=== PATIENT | male | born 1955 | race Caucasian/White ===

== ENCOUNTER 2018-11-23 18:10 | Observation (INO) ==
[2018-11-23] MEDS ORDERED: FAMOTIDINE 20MG/5ML IV PUSH IV STA (18:35)
[2018-11-23] MEDS: SODIUM CHLORIDE 0.9% 1000ML 1,000 ML IV SCH (18:40)
--- NOTE | 2018-11-23 18:40 | XRay Report ---
XR chest 1V portable CLINICAL HISTORY: 62 years-old Male presenting with vomiting, ams, mid sternal chest pain and dizzine ss started today. TECHNIQUE: Portable upright AP view of the chest was obtained. COMPARISON: None. FINDINGS: Atherosclerosis of the aortic arch. Cardiac silhouette top normal in size. Color vascular prominence. Minimal basilar opacities. No pleural effusion or pneumothorax. Degenerative changes of the thoracic spine. Upper abdomen normal. IMPRESSION: 1. Mild volume overload. 2. Minimal bibasilar opacities likely atelectasis or vascular crowding. Electronically signed by: Raul Samuel M.D. 11/23/2018 6:38 PM
[2018-11-23 19:05] LABS: Basophils # (auto) 0.05 K/uL (0-0.2); Basophils % (auto) 0.4 %; Eosinophils % (auto) 0.8 %; Hemoglobin 15.2 g/dL (14.0-18.0); Immature Granulocytes # (auto) 0.09 K/uL (0.00-0.02); Immature Granulocytes % (auto) 0.7 %; Lymphocytes # (auto) 1.68 K/uL (1.2-3.4); Lymphocytes % (auto) 13.5 %; Mean Corpuscular Hgb Conc 35.3 g/dL (32-36); Mean Corpuscular Volume 89.8 fL (80-100); Mean Platelet Volume 9.7 fL (7.4-10.4); Monocytes % (auto) 5.6 %; Neutrophils # (auto) 9.83 K/uL (1.4-6.5); Platelet Count 222 K/uL (130-400); RDW Coefficient of Variation 13.1 % (11.5-14.5); RDW Standard Deviation 43.4 fL (36.4-46.3); Red Blood Count 4.79 M/uL (4.7-6.1); White Blood Count 12.45 K/uL (4.8-10.8)
[2018-11-23 19:21] LABS: Albumin Level 3.8 gm/dl (3.4-5.0); BUN Creatinine Ratio 16.3 (10-20); Calcium 9.3 mg/dl (8.5-10.1); Creatinine Clr Calc Pharmacy 76.2 ml/min; Est GFR (African American) 85.8; Magnesium 2.2 mg/dl (1.8-2.4); Potassium 4.4 mmol/L (3.5-5.1)
--- NOTE | 2018-11-23 19:23 | CT Scan Report ---
CT head/brain wo con CLINICAL HISTORY: 62 years-old Male presenting with dizziness, ams. TECHNIQUE: Multidetector CT imaging of the head was performed without the use of intravenous contrast . IV contrast: None. One or more dose lowering techniques were used consistent with the principles of ALARA (as low as reasonably achievable), including automatic exposure control, mA or kV adjustment t o individual patient size, and/or use of iterative reconstruction. COMPARISON: None. CT DOSE (mGy.cm): The estimated cumulative dose is 614.27 mGy.cm. FINDINGS: Commercial Loan Assistant topogram: Unremarkable. Ventricles and sulci normal in size. No hemorrhage. Brain parenchyma normal in appearance with preser julio bales-white differentiation. No acute territorial infarct. No mass effect or midline shift. No ext ra-axial fluid collection. Paranasal sinuses and mastoid air cells clear. Calvarium intact. IMPRESSION: 1. No acute intracranial abnormality. Electronically signed by: Raul Samuel M.D. 11/23/2018 7:22 PM
[2018-11-23 19:31] LABS: Albumin Globulin Ratio 1.1 (0.9-2); Bilirubin,Total 0.3 mg/dl (0.2-1); Globulin 3.5 gm/dl (2.5-4.0); Total Protein 7.3 gm/dl (6.4-8.2); Troponin I 0.019 ng/ml (0-0.045)
[2018-11-23] MEDS ORDERED: MECLIZINE HCL 25 MG TAB PO STA (20:28)
[2018-11-23] MEDS ORDERED: OPTIRAY 320 125ml IV PRN (21:28)
--- NOTE | 2018-11-23 21:34 | CT Scan Report ---
CT angio head w con CLINICAL HISTORY: 62 years-old Male presenting with severe dizziness, n/v. TECHNIQUE: Multidetector CT angiography of the head was performed after the administration of intrave nous contrast. 3-D volumetric and/or maximum intensity projection (MIP) images were subsequently eusebia nstructed for review. IV contrast: 120 mL of Optiray 320. One or more dose lowering techniques were u sed consistent with the principles of ALARA (as low as reasonably achievable), including automatic ex posure control, mA or kV adjustment to individual patient size, and/or use of iterative reconstructio n. COMPARISON: Head CT from the same day. CT DOSE (mGy.cm): The estimated cumulative dose is 557.35. FINDINGS: Deep Submergence Vehicle Operator topogram: Unremarkable. Anterior circulation: Atherosclerosis of the cavernous segments of the internal carotid arteries. Int racranial portions of the internal carotid arteries patent to the level of the termini. Anterior cere bral arteries patent. Middle cerebral arteries patent. Anterior communicating artery patent. Posterior circulation: Codominant vertebral arteries. Intradural portions of the vertebral arteries p atent. Posterior inferior cerebellar arteries patent. Basilar artery patent. Anterior inferior cerebe llar arteries poorly visualized. Superior cerebellar arteries patent. Posterior cerebral arteries pat ent. Posterior communicating arteries patent. Dural venous sinuses: Patent. Other: Allowing for the phase of contrast, brain parenchyma within normal limits. Calvarium intact. IMPRESSION: 1. No evidence of aneurysm, focal vessel occlusion, or significant stenosis of the intracranial maricarmen kamron. Electronically signed by: Raul Samuel M.D. 11/23/2018 9:33 PM
--- NOTE | 2018-11-23 21:37 | CT Scan Report ---
CT angio neck with con CLINICAL HISTORY: 62 years-old Male presenting with severe dizziness, n/v. TECHNIQUE: Multidetector CT angiography of the neck was performed after the administration of intrave nous contrast. 3-D volumetric and/or maximum intensity projection (MIP) images were subsequently eusebia nstructed for review. IV contrast: 120 mL of Optiray 320. One or more dose lowering techniques were u sed consistent with the principles of ALARA (as low as reasonably achievable), including automatic ex posure control, mA or kV adjustment to individual patient size, and/or use of iterative reconstructio n. Stenosis measurements were based on NASCET-like criteria (distal lumen diameter as the denominator for stenosis measurement). COMPARISON: None. CT DOSE (mGy.cm): The estimated cumulative dose is 557.35 mGy.cm. FINDINGS: Soft Sugar Cutter topogram: Unremarkable. Aortic arch: Aortic arch is not fully included within the [id number]. Innominate artery: Origin not included within the [id number]. Remainder patent. Right subclavian artery: Patent. Right common carotid artery: Patent. Right internal and external carotid arteries: Mild atherosclerotic plaque at the bifurcation without narrowing of the origins of the right internal or external carotid arteries. Left common carotid artery: Patent. Left internal and external carotid arteries: Mild atherosclerotic plaque and luminal irregularity at the carotid bifurcation without narrowing of the origins of the and left internal or external carotid arteries. Left subclavian artery: Patent. Vertebral arteries: Codominant vertebral arteries. Origins and courses of the bilateral vertebral art eries patent. Other: Limited intracranial evaluation within normal limits. Soft tissues of the neck normal allowing for the phase of contrast. Degenerative changes of the cervical spine. Paraseptal emphysematous alva ges and pleural parenchymal scarring at the lung apices. IMPRESSION: 1. No evidence of dissection, focal vessel occlusion, or significant stenosis of the cervical arteri es. Electronically signed by: Raul Samuel M.D. 11/23/2018 9:36 PM
--- NOTE | 2018-11-23 23:03 | Emergency Department Note ---
Entered by Allie Moore acting as a scribe for Denise Tenorio DO History of Present Illness General Chief complaint: Dizziness Stated complaint: DIZZINESS, VERTIGO SX Time Seen by Provider: 11/23/18 18:11 Source: patient Mode of arrival: EMS History of Present Illness Provider complaint: Dizziness Onset (ago): hour(s) less than 1 Location: head Pain Consistency: + other (episode) Quality: + other (dizziness) Associated symptoms: + chest pain (in center of chest), + nausea/vomiting and + other (diarrhea, diaphoretic); no headaches and no shortness of breath The patient is a 62 year old male who presents to the ED with complaints of an episode of dizziness that started less than an hour ago. Per EMS, the patient was nauseas, vomiting, had diarrhea and was diaphoretic upon arrival. The patient states that he is dizzy and has vomited 10-15 times in the past hour. The patient notes that he did not hit his head at any point during this episode. The patient states that he currently has chest pain in the center of his chest that began upon arrival to the ED. no chest pain prior to dizziness. No prior history of dizziness. No recent change in medications. Patient does not take blood thinners. The patient denies headache and shortness of breath. No recent fevers, no recent illness. No paresthesias. No light sensitivity, no tinnitus. Home Medications Home Medications Medication Instructions Recorded Confirmed Type meclizine 25 mg PO TID PRN #20 tab 11/23/18 Rx ondansetron 4 mg PO Q8H PRN #14 tab 11/23/18 Rx pravastatin 40 mg PO DAILY 11/24/18 11/24/18 History Allergies Allergy/AdvReac Type Severity Reaction Status Date / Time No Known Allergies Allergy Mild Unverified 05/12/06 20:38 Past Med/Surg History Medical History Tick bite (Resolved) Social History Preferred Language: Kinyarwanda Communication Ability: Effective Briquette Maker Required: No Beliefs That Will Affect Care: None marital status: Current Living Situation: Spouse Feels Safe at Home: Yes Safety Concerns: Feels Safe At This Time Smoking Status: Current every day smoker Tobacco Type: cigarettes Cigarettes Per Day: 10 Hx Alcohol Use: Yes Alcohol type: beer Hx Substance Use: No Review of Systems See HPI for pertinent positives & negatives. and A total of 10 systems reviewed and were otherwise negative ROS and HPI is limited secondary to prehospital medication and current condition. Physical Exam Vital Signs Vital Signs - 24 hr 11/24/18 01:00 11/24/18 01:30 11/24/18 01:31 Pulse Rate 59 L 58 L 61 Pulse Rate from SpO2 Sensor 60 58 L 62 Respiratory Rate 10 L 13 16 Blood Pressure 167/86 H 149/81 H Blood Pressure Mean 113 103 Pulse Oximetry 95 96 96 11/24/18 02:00 Pulse Rate 57 L Pulse Rate from SpO2 Sensor Respiratory Rate 17 Blood Pressure 170/85 H Blood Pressure Mean 113 Pulse Oximetry GENERAL: somnolent, slightly diaphoretic, well nourished, no distress, non- toxic, slightly pale. EYE EXAM: normal conjunctiva, PERRL and EOM's grossly intact, difficulty opening eyes to assess for nystagmus OROPHARYNX: no exudate, no erythema, lips, buccal mucosa, and tongue normal and mucous membranes are moist NECK: supple, no nuchal rigidity, no adenopathy, non-tender LUNGS: Clear to auscultation. Normal chest wall mechanics, no w/r/r HEART: no murmurs, S1 normal and S2 normal ABDOMEN: abdomen soft, non-tender, normo-active bowel sounds, no masses, no rebound or guarding. BACK: Back is symmetrical on inspection and there is no deformity, no midline tenderness, no CVA tenderness. SKIN: no rashes and no bruising, slightly diaphoretic, slightly pale. UPPER EXTREMITIES: upper extremities are grossly normal. FROM, nml pulses b/l. LOWER EXTREMITIES: No pitting edema. FROM, nml pulses b/l. NEURO EXAM: Normal sensorium, cranial nerves II-XII grossly intact, normal speech, no gross weakness of arms, no gross weakness of legs. No drift. Finger to nose intact. Gross sensation intact. Patient answers questions slowly but appropriately. Opens eyes to voice. Is oriented. Will follow commands. Unable to perform additional neurological testing due to somnolence from medication. Course 1814: Past medical records reviewed. The patient was evaluated in room A12B. A complete history and physical exam was performed. 1920: I discussed the patient's test results with them. He is resting comfortably. 1955: I reevaluated the patient at this time. The patient wakes up more easily. Horizontal nystagmus is now evident. The patient notes that dizziness returns upon turning his head to the sides. 2155: I reevaluated the patient at this time and he is feeling better. Will try po challenge. 3: I reevaluated the patient and he is sitting upright. The patient states that he is feeling wobbly but better. The patient no longer has nystagmus and he is tolerating sips PO. 0045: After repeat ambulatory attempt, pt became dizzy and nauseated again. Pt given additional meds. 0132: I discussed the patients [facility] They will evaluate the patient for further management. Consultations Consultation #1: I discussed the patients case with Dr. Smeaj Pacheco. They will evaluate the patient for further management. Time: 01:32 Administered Medications Meclizine HCl (Antivert) 12.5 mg PO TID PRN PRN Reason: Dizziness or Vertigo Stop: 12/24/18 02:51 Last Admin: 11/24/18 16:42 Dose: 12.5 mg Documented by: [id number] Pravastatin Sodium (Pravachol) 40 mg PO DAILY MACY Stop: 12/24/18 08:59 Last Admin: 11/24/18 08:20 Dose: 40 mg Documented by: [id number] Discontinued Medications Diazepam (Valium) 2.5 mg IV NOW STA Stop: 11/24/18 00:02 Last Admin: 11/24/18 00:23 Dose: 2.5 mg Documented by: [id number] Famotidine (Pepcid 20mg Iv Push) 20 mg IV ONE STA Stop: 11/23/18 18:36 Last Admin: 11/23/18 18:41 Dose: 20 mg Documented by: [id number] Gadobutrol (Gadavist 65ml) 9 ml IV ONCE PRN PRN Reason: Interaction Checking Stop: 11/28/18 11:01 Last Admin: 11/24/18 11:03 Dose: 9 ml Documented by: [id number] Sodium Chloride (Nss 1000ml) 1,000 mls @ 125 mls/hr IV .Q8H MACY Stop: 12/23/18 18:29 Last Infusion: 11/24/18 14:00 Dose: 0 mls/hr Documented by: [id number] Admin: 11/23/18 18:40 Dose: 125 mls/hr Documented by: [id number] Sodium Chloride (Nss 1000ml) 1,000 mls @ 80 mls/hr IV .[id number] MACY Stop: 12/24/18 02:51 Last Infusion: 11/24/18 15:57 Dose: 0 mls/hr Documented by: [id number] Admin: 11/24/18 03:27 Dose: 80 mls/hr Documented by: [id number] Ioversol (Optiray 320 125ml) 120 ml IV ONCE PRN PRN Reason: Interaction Checking Stop: 11/27/18 21:27 Last Admin: 11/23/18 21:28 Dose: 120 ml Documented by: [id number] Meclizine HCl (Antivert) 25 mg PO NOW STA Stop: 11/23/18 20:29 Last Admin: 11/23/18 20:56 Dose: 25 mg Documented by: [id number] Meclizine HCl (Antivert 25mg Home Pack) 1 homepack PO UD ONE Stop: 11/23/18 23:56 Last Admin: 11/24/18 01:09 Dose: Not Given Documented by: [id number] Ondansetron HCl (Zofran Odt 4mg Home Pack) 1 homepack PO NOW ONE Stop: 11/23/18 23:56 Last Admin: 11/24/18 01:09 Dose: Not Given Documented by: [id number] Ondansetron HCl (Zofran) 4 mg IV NOW STA Stop: 11/24/18 00:03 Last Admin: 11/24/18 00:23 Dose: 4 mg Documented by: [id number] Medical Decision Making Differential Diagnosis Differential diagnosis: Etiologies such as benign positional vertigo, labrynthitis, dehydration, hypovolemia, anemia, tumor, infection, hypoglycemia, electrolyte abnormalities, cardiac sources, toxicological sources, central neurologic process, as well as others were entertained. Medical Records Attestation: I reviewed the patient's medical records. Home Medications Current Medication List: was personally reviewed by me Laboratory Data Attestation: I reviewed the patient's lab results. Result diagrams: 11/24/18 06:58 11/24/18 06:58 Lab Results 06/11/23/18 11/23/18 Range/Units 18:56 18:56 21:34 WBC 12.45 H (4.8-10.8) K/uL RBC 4.79 (4.7-6.1) M/uL Hgb 15.2 (14.0-18.0) g/dL Hct 43.0 (42-52) % MCV 89.8 (80-100) fL MCH 31.7 (25-34) pg MCHC 35.3 (32-36) g/dL RDW Std Deviation 43.4 (36.4-46.3) fL RDW Coeff of Roverto 13.1 (11.5-14.5) % Plt Count 222 (130-400) K/uL MPV 9.7 (7.4-10.4) fL Immature Gran % (Auto) 0.7 % Neut % (Auto) 79.0 % Lymph % (Auto) 13.5 % [place] % (Auto) 5.6 % Eos % (Auto) 0.8 % Baso % (Auto) 0.4 % Immature Gran # (Auto) 0.09 H (0.00-0.02) K/uL Neut # (Auto) 9.83 H (1.4-6.5) K/uL Lymph # (Auto) 1.68 (1.2-3.4) K/uL [place] # (Auto) 0.70 H (0.11-0.59) K/uL Eos # (Auto) 0.10 (0-0.5) K/uL Baso # (Auto) 0.05 (0-0.2) K/uL Sodium 141 (136-145) mmol/L Potassium 4.4 (3.5-5.1) mmol/L Chloride 105 (98-107) mmol/L Carbon Dioxide 26 (21-32) mmol/L Anion Gap 11.0 (3-11) BUN 17 (7-18) mg/dl Creatinine 1.07 (0.6-1.4) mg/dl Est Cr Clr Drug Dosing 76.2 ml/min Est GFR ( Amer) 85.8 Est GFR (Non-Af Amer) 74.0 BUN/Creatinine Ratio 16.3 (10-20) Glucose 164 H (70-99) mg/dl Calcium 9.3 (8.5-10.1) mg/dl Magnesium 2.2 (1.8-2.4) mg/dl Total Bilirubin 0.3 (0.2-1) mg/dl AST 16 (15-37) U/L ALT 28 (12-78) U/L Alkaline Phosphatase 108 (45-117) U/L Troponin I 0.019 0.016 (0-0.045) ng/ml Total Protein 7.3 (6.4-8.2) gm/dl Albumin 3.8 (3.4-5.0) gm/dl Globulin 3.5 (2.5-4.0) gm/dl Albumin/Globulin Ratio 1.1 (0.9-2) Lipase 71 L (73-393) U/L TSH 1.700 (0.300-4.500) uIu/ml Imaging Data Radiologist's Impression: Radiology results as stated below per my review and the radiologist's interpretation: XR chest 1V portable CLINICAL HISTORY: 62 years-old Male presenting with vomiting, ams, mid sternal chest pain and dizziness started today. TECHNIQUE: Portable upright AP view of the chest was obtained. COMPARISON: None. FINDINGS: Atherosclerosis of the aortic arch. Cardiac silhouette top normal in size. Color vascular prominence. Minimal basilar opacities. No pleural effusion or pneumothorax. Degenerative changes of the thoracic spine. Upper abdomen normal. IMPRESSION: 1. Mild volume overload. 2. Minimal bibasilar opacities likely atelectasis or vascular crowding. Electronically signed by: Raul Samuel M.D. 11/23/2018 6:[address] head/brain wo con CLINICAL HISTORY: 62 years-old Male presenting with dizziness, ams. TECHNIQUE: Multidetector CT imaging of the head was performed without the use of intravenous contrast. IV contrast: None. One or more dose lowering techniques were used consistent with the principles of ALARA (as low as reasonably achievable), including automatic exposure control, mA or kV adjustment to individual patient size, and/or use of iterative reconstruction. COMPARISON: None. CT DOSE (mGy.cm): The estimated cumulative dose is 614.27 mGy.cm. FINDINGS: Design Draftsman topogram: Unremarkable. Ventricles and sulci normal in size. No hemorrhage. Brain parenchyma normal in appearance with preserved bales-white differentiation. No acute territorial infarct. No mass effect or midline shift. No extra-axial fluid collection. Paranasal sinuses and mastoid air cells clear. Calvarium intact. IMPRESSION: 1. No acute intracranial abnormality. Electronically signed by: Raul Samuel M.D. 11/23/2018 7:[address] angio head w con CLINICAL HISTORY: 62 years-old Male presenting with severe dizziness, n/v. TECHNIQUE: Multidetector CT angiography of the head was performed after the administration of intravenous contrast. 3-D volumetric and/or maximum intensity projection (MIP) images were subsequently reconstructed for review. IV contrast: 120 mL of Optiray 320. One or more dose lowering techniques were used consistent with the principles of ALARA (as low as reasonably achievable), including automatic exposure control, mA or kV adjustment to individual patient size, and/or use of iterative reconstruction. COMPARISON: Head CT from the same day. CT DOSE (mGy.cm): The estimated cumulative dose is 557.35. FINDINGS: Design Draftsman topogram: Unremarkable. Anterior circulation: Atherosclerosis of the cavernous segments of the internal carotid arteries. Intracranial portions of the internal carotid arteries patent to the level of the termini. Anterior cerebral arteries patent. Middle cerebral arteries patent. Anterior communicating artery patent. Posterior circulation: Codominant vertebral arteries. Intradural portions of the vertebral arteries patent. Posterior inferior cerebellar arteries patent. Basilar artery patent. Anterior inferior cerebellar arteries poorly visualized. Superior cerebellar arteries patent. Posterior cerebral arteries patent. Posterior communicating arteries patent. Dural venous sinuses: Patent. Other: Allowing for the phase of contrast, brain parenchyma within normal limits. Calvarium intact. IMPRESSION: 1. No evidence of aneurysm, focal vessel occlusion, or significant stenosis of the intracranial arteries. Electronically signed by: Raul Samuel M.D. 11/23/2018 9:[address] angio neck with con CLINICAL HISTORY: 62 years-old Male presenting with severe dizziness, n/v. TECHNIQUE: Multidetector CT angiography of the neck was performed after the administration of intravenous contrast. 3-D volumetric and/or maximum intensity projection (MIP) images were subsequently reconstructed for review. IV contrast: 120 mL of Optiray 320. One or more dose lowering techniques were used consistent with the principles of ALARA (as low as reasonably achievable), including automatic exposure control, mA or kV adjustment to individual patient size, and/or use of iterative reconstruction. Stenosis measurements were based on NASCET-like criteria (distal lumen diameter as the denominator for stenosis niecy surement). COMPARISON: None. CT DOSE (mGy.cm): The estimated cumulative dose is 557.35 mGy.cm. FINDINGS: Design Draftsman topogram: Unremarkable. Aortic arch: Aortic arch is not fully included within the [id number]. Innominate artery: Origin not included within the [id number]. Remainder patent. Right subclavian artery: Patent. Right common carotid artery: Patent. Right internal and external carotid arteries: Mild atherosclerotic plaque at the bifurcation without narrowing of the origins of the right internal or external carotid arteries. Left common carotid artery: Patent. Left internal and external carotid arteries: Mild atherosclerotic plaque and luminal irregularity at the carotid bifurcation without narrowing of the origins of the and left internal or external carotid arteries. Left subclavian artery: Patent. Vertebral arteries: Codominant vertebral arteries. Origins and courses of the bilateral vertebral arteries patent. Other: Limited intracranial evaluation within normal limits. Soft tissues of the neck normal allowing for the phase of contrast. Degenerative changes of the cervical spine. Paraseptal emphysematous changes and pleural parenchymal scarring at the lung apices. IMPRESSION: 1. No evidence of dissection, focal vessel occlusion, or significant stenosis of the cervical arteries. Electronically signed by: Raul Samuel M.D. 11/23/2018 9:36 PM ECG Data Attestation: I personally reviewed and interpreted this ECG as follows: Indication: other (Dizziness) Rate (beats per minute): 59 Rhythm: sinus bradycardia Findings: + other (normal axis, normal intervals); no PAC, no PVC, no ST depression, no ST elevation, no acute ischemic change and no ectopy Blood Pressure Blood Pressure Findings: Elevated blood pressure Blood Pressure Disposition: further management by hospitalist BIRDIE Beckett Patient here markedly ill-appearing on arrival, story most suggestive of benign paroxysmal positional vertigo. No recent trauma or infection to suggest additional etiology. Initially could not assess for nystagmus or perform hints exam due to severity of symptoms and patient's somnolence due to IV Versed given by EMS prehospital. Patient's initial head CT reassuring, given recurrence of severe symptoms while here and recurrent vomiting, patient sent for angiography to rule out other pathology. This was also reassuring. After additional medications, patient's symptoms did begin to improve. Patient was able to to lerate p.o. and eventually sit upright despite some residual symptoms. Initially patient felt improved enough to try and ambulatory trial. Patient failed this was given additional medications. Patient then monitored again, slowly began to report feeling improved, however with repeat ambulatory trial, his symptoms again became severe to the point of nearly falling and vomiting again. I discussed with patient likely diagnosis, lack of other findings for other pathology including other neuro, vascular, or cardiac etiology. I suspect nausea and vomiting is secondary to dizziness and not from additional occult GI pathology. Case discussed with hospitalist for additional evaluation and manag ement. Impression & Plan Dizziness, Benign paroxysmal positional vertigo, Vomiting Discharge Plan Visit Data *Final* Discharge Date/Time: 11/24/18 02:29 Chief Complaint: Dizziness Stated Complaint: DIZZINESS, VERTIGO SX ED Provider: Denise Tenorio Discharge Problem: Dizziness, Benign paroxysmal positional vertigo, Vomiting Patient Disposition: Admitted As Inpatient Condition: Good Discharge Instructions Interventions: ED Discharge Assessment Last Done: 11/24/18 02:29 Discharge Problem: Benign paroxysmal positional vertigo Qualifiers: Laterality: unspecified laterality Qualified Code(s): H81.10 - Benign paroxysmal vertigo, unspecified ear Vomiting Qualifiers: Vomiting type: unspecified Vomiting Intractability: non-intractable Nausea presence: with nausea Qualified Code(s): R11.2 - Nausea with vomiting, unspecified The scribe's documentation has been prepared under my direction and personally reviewed by me in its entirety. I confirm that the note above accurately reflects all work, treatment, procedures, and medical decision making performed by me.
[2018-11-23] MEDS ORDERED: MECLIZINE HCL 25MG HOME PACK PO ONE (23:55)
[2018-11-23] MEDS ORDERED: ONDANSETRON HOME PACK 4MG OD TAB PO ONE (23:55)
[2018-11-24] MEDS ORDERED: DIAZEPAM 5 MG/ML INJ 10ML VIAL IV STA (00:01)
[2018-11-24] MEDS ORDERED: ONDANSETRON INJ 2 MG/ML 2 ML VIAL IV STA (00:02)
[2018-11-24] MEDS ORDERED: MECLIZINE 12.5 MG TAB PO PRN (02:52)
[2018-11-24] MEDS ORDERED: NITROGLYCERIN SL 0.4 MG/TAB TAB SL PRN (02:52)
[2018-11-24] MEDS ORDERED: SODIUM CHLORIDE 0.9% 1000ML 1,000 ML IV SCH (02:52)
[2018-11-24] MEDS ORDERED: ACETAMINOPHEN 325 MG TAB PO PRN (02:52)
[2018-11-24] MEDS ORDERED: ONDANSETRON INJ 2 MG/ML 2 ML VIAL IV PRN (02:52)
[2018-11-24 07:08] LABS: Basophils # (auto) 0.04 K/uL (0-0.2); Basophils % (auto) 0.4 %; Eosinophils # (auto) 0.08 K/uL (0-0.5); Eosinophils % (auto) 0.8 %; Hematocrit (blood only) 39.3 % (42-52); Hemoglobin 13.7 g/dL (14.0-18.0); Immature Granulocytes # (auto) 0.04 K/uL (0.00-0.02); Immature Granulocytes % (auto) 0.4 %; Lymphocytes # (auto) 2.11 K/uL (1.2-3.4); Lymphocytes % (auto) 21.3 %; Mean Corpuscular Hgb Conc 34.9 g/dL (32-36); Mean Corpuscular Volume 90.3 fL (80-100); Mean Platelet Volume 9.3 fL (7.4-10.4); Monocytes # (auto) 0.74 K/uL (0.11-0.59); Monocytes % (auto) 7.5 %; Neutrophils # (auto) 6.91 K/uL (1.4-6.5); Neutrophils % (auto) 69.6 %; Platelet Count 205 K/uL (130-400); RDW Coefficient of Variation 13.1 % (11.5-14.5); RDW Standard Deviation 43.9 fL (36.4-46.3); Red Blood Count 4.35 M/uL (4.7-6.1); White Blood Count 9.92 K/uL (4.8-10.8)
[2018-11-24 07:24] LABS: Calcium 9.1 mg/dl (8.5-10.1); Creatinine Clr Calc Pharmacy 103.7 ml/min; Est GFR (African American) 108.2; Est GFR (Non-African American) 93.4; Magnesium 2.2 mg/dl (1.8-2.4); Potassium 4.6 mmol/L (3.5-5.1)
[2018-11-24] MEDS: PRAVASTATIN SOD 40 MG TAB PO SCH (08:20)
--- NOTE | 2018-11-24 09:02 | History and Physical Report ---
DATE OF ADMISSION: 11/24/2018 CHIEF COMPLAINT: Severe dizziness. HISTORY OF PRESENT ILLNESS: This 62-year-old male with past medical history significant for hyperlipidemia, prediabetes, comes with severe dizziness. The patient says that he mowed his grass and then he came home and his asked to get him something and he went to pick the thing up, he suddenly felt severely dizzy, felt the whole room spinning and he called the EMS. When the EMS came in, he was having nausea, vomiting, diarrhea and diaphoretic and he had several episodes of vomiting. He was thinking that he might have some food poison that he said he ate some leftover pizza. The EMS gave some medication and then he did not know what happened, he just woke up in the ER. In the ER, he was given meclizine, famotidine and was having significant dizziness and so he was also given Valium. CT of the head was done, which was unremarkable. Since he was having ongoing symptoms and there was some horizontal nystagmus, CTA of the head and neck was done, which was unremarkable. ER tried to discharge the patient but whenever he is getting up from the bed, he is still feeling dizzy, room spinning, imbalance and nauseous, so we are called for admission. The patient is currently resting comfortably and hemodynamically stable, but he says when he turns his head, he sometimes is feeling room spinning and he says he just now got up to go for bathroom and he was feeling again dizziness and imbalance. It never happened before. Denies any upper respiratory infections. No fever, no chills, no headache. Currently has some blurred vision, no earache, no sore throat. Otherwise, no difficulty swallowing. Appetite is okay otherwise. Denies any chest pain currently, no shortness of breath, no abdominal pain. Normal bladder movements. No hematuria, no burning micturition. No swelling in the legs. No rash. ALLERGIES: No known drug allergies. PAST MEDICAL HISTORY: As mentioned above. PAST SURGICAL HISTORY: Colonoscopy, wisdom tooth removal, removal of right testis secondary to torsion. MEDICATIONS: Pravastatin 40 mg p.o. daily. FAMILY HISTORY: Significant for father has diabetes. Mother has diabetes and Alzheimer dementia. Brother has high cholesterol. SOCIAL HISTORY: and lives with his . Former smoker, quit smoking, smoked 0.25 pack a day for 32 years. Alcohol rarely. REVIEW OF SYMPTOMS: As per HPI. Rest of review of symptoms negative. PHYSICAL EXAMINATION: GENERAL: The patient is of moderate build, not in acute distress. VITAL SIGNS: Temperature afebrile, pulse 59, respiratory rate 18, blood pressure 161/86, oxygen 95% on room air. HEENT: No pallor, no icterus. Pupils equal, round, reactive to light. Possible horizontal nystagmus mildly present. NECK: No neck masses. Supple. CARDIOVASCULAR: S1, S2 heard, regular rate and rhythm, no murmur, no gallop. RESPIRATORY SYSTEM: Normal AP diameter. No accessory muscle use. No wheezing, no crackles. ABDOMEN: Soft, bowel sounds present. Nontender. No distention. CENTRAL NERVOUS SYSTEM: Cranial nerves II-XII grossly intact. Coordination of movements normal. Bgyboz-og-kwyu test normal. No pronator drift. EXTREMITIES: No edema, no erythema. LABORATORY DATA: WBC 12.4, hemoglobin 15.2, hematocrit 43, platelets 222. Sodium 141, potassium 4.4, chloride 105, bicarbonate 26, BUN 17, creatinine 1.07, serum glucose 164, calcium 9.3, magnesium 2.2, total bilirubin 0.3, AST 16, ALT 28, alkaline phosphatase 108. Troponin I 0.016. Lipase 71. TSH 1.7. Chest x-ray; mild volume overload, minimal bibasilar atelectasis. CT of the head; no acute intracranial abnormality seen. CTA of the head and neck; no acute findings. EKG; sinus bradycardia, rate of 59, nonspecific ST abnormalities seen. ASSESSMENT AND PLAN: This is a 62-year-old male who presents with severe dizziness. 1. Severe dizziness, possible benign positional vertigo: Initial workup with CT of the head and CTA of the head and neck is unremarkable. We will also do a brain MRI to rule out any central causes. Check orthostatics. Gentle fluids and meclizine p.r.n. and consult Neurology for further recommendation. PT/OT. Observe on Medical/Surgical. 2. History of hyperlipidemia: Continue statin. 3. Deep venous thrombosis prophylaxis: Sequential compression devices. 4. Disposition: Observation in Medical/Surgical Telemetry. Level 1 full code. MTDD
[2018-11-24 10:11] LABS: Appearance Urine Clear (Clear); Bilirubin Urine Negative (Negative); Blood Urine Negative (Negative); Color Urine Yellow; Glucose Urine UA Negative (Negative); Ketones Urine Negative (Negative); Leukocyte Esterase Urine Negative (Negative); Nitrite Urine Negative (Negative); Protein Urine Negative (Negative); Specific Gravity Urine 1.011 (1.000-1.030); Urobilinogen Urine Negative (Negative)
[2018-11-24] MEDS ORDERED: GADOBUTROL 65ML VIAL IV PRN (11:02)
--- NOTE | 2018-11-24 11:25 | Magnetic Resonance Report ---
MRI OF THE BRAIN WITHOUT AND WITH IV CONTRAST CLINICAL HISTORY: Severe dizziness. COMPARISON STUDY: Head CT and CTA of the head November 23, 2018. TECHNIQUE: Utilizing a 1.5 Ange magnet and dedicated coil, multiplanar, multiecho imaging of the br ain was performed pre and postcontrast administration. IV administration of 9 mL of Gadavist contras t was uneventful. FINDINGS: There are no foci of restricted diffusion to suggest acute infarct. No acute intracranial h emorrhage, midline shift or mass effect is present. Brain volume is normal. Ventricular system is nor mal. The basilar cisterns are patent. No intracranial mass or pathologic enhancement. Mild white latisha er T2 hyperintense foci suggest small vessel disease. There is no fluid within the mastoid air cells. No cerebellopontine angle mass is identified. Orbits are unremarkable. IMPRESSION: 1. No acute intracranial findings. 2. No intracranial mass or pathologic enhancement. Electronically signed by: Toney Rizvi M.D. 11/24/2018 11:24 AM
--- NOTE | 2018-11-24 12:48 | Hospitalist Progress Note ---
Date of Service November 24, 2018 Assessment & Plan (1) Dizziness: This is a 62-year-old male who presents with severe dizziness which was also associated with vomiting Dizziness and Vomiting possibly benign positional vertigo -Head CTA: No evidence of aneurysm, focal vessel occlusion, or significant stenosis of the intracranial arteries -Neck CTA: No evidence of dissection, focal vessel occlusion, or significant stenosis of the cervical arteries -patient received IV fluids and antiemetics and meclizine -no acute telemetry events, heart rate and rhythm has been sinus and normal -echocardiogram: normal ejection fraction -Brain MRI 11/24/18: there are no foci of restricted diffusion to suggest acute infarct. No acute intracranial hemorrhage, midline shift or mass effect is present. Brain volume is normal. Ventricular system is normal. The basilar cisterns are patent. No intracranial mass or pathologic enhancement. Mild white matter T2 hyperintense foci suggest small vessel disease. There is no fluid within the mastoid air cells. No cerebellopontine angle mass is identified. Orbits are unremarkable. -So far the initial dizziness or vertigo for which he initially presented for appears to be resolved. Patient denies dizziness currently. He was able to move his head rapidly from side to side without acute issues. no headache. no vomiting today. no chest pain. no shortness of breath. we discussed currently imaging scan results which have been generally negative. patient is encouraged to walk as tolerated and will monitor blood pressure off IV fluids -likely patient may be discharged by tomorrow if symptoms continue to be improved; -will appreciate any additional neurology service recommendations suspected hypertension -blood pressure systolic in the 150s to 160s while in the hospital -will monitor blood pressures off IV fluids -will consider anti-hypertensives depending on monitoring History of hyperlipidemia -Continue statin. Deep venous thrombosis prophylaxis: Sequential compression devices, encourage ambulation as tolerated Subjective Patient seen and examined today. So far the initial dizziness or vertigo for which he initially presented for appears to be resolved. Patient denies dizziness currently. He was able to move his head rapidly from side to side without acute issues. no headache. no vomiting today. no chest pain. no shortness of breath. we discussed currently imaging scan results which have been generally negative. patient is encouraged to walk as tolerated and will monitor blood pressure off IV fluids Physical Exam Constitutional: WD/WN, vitals as above Eyes: PERRL, conjunctivae normal, anicteric sclerae EOM intact bilaterally ENMT: external ear and nose normal, oropharynx normal Neck: trachea midline, no thyromegaly normal visual inspection Respiratory: normal respiratory effort, lungs clear to auscultation Cardiovascular: RRR, no murmur, no edema Gastrointestinal (Abdomen): normal bowel sounds, soft, nontender, no hepatosplenomegaly Musculoskeletal: no cyanosis or clubbing, extremities motor strength 5/5 Head/Neck/Chest: normocephalic and head atraumatic Neurologic: PERRL, EOMI, accommodation nl, no face palsy, no dysarthria CN's II-XI intact bilaterally Psychiatric: A+Ox3, euthymic affect Results & Data Vital Signs (Past 12 Hours) Vital Signs Temp Pulse Pulse Pulse Resp BP BP 11/24/18 11:45 37.0 C 60 16 158/72 H 11/24/18 08:39 55 L 11/24/18 07:14 36.6 C 49 L 16 158/80 H 11/24/18 03:52 58 L 157/81 H 11/24/18 02:51 36.6 C 62 16 187/66 H 11/24/18 02:00 57 L 17 170/85 H 11/24/18 01:31 61 16 149/81 H 11/24/18 01:30 58 L 13 11/24/18 01:00 59 L 10 L 167/86 H Pulse Ox 11/24/18 11:45 98 11/24/18 08:39 11/24/18 07:14 94 11/24/18 03:52 11/24/18 02:51 98 11/24/18 02:00 11/24/18 01:31 96 11/24/18 01:30 96 11/24/18 01:00 95
--- NOTE | 2018-11-24 12:59 | Consultation Report ---
DATE OF CONSULTATION: 11/24/2018 REASON FOR CONSULTATION: Dizziness. HISTORY OF PRESENT ILLNESS: A 62-year-old right-handed male with a history of hyperlipidemia, diabetes, comes in for evaluation of severe new-onset dizziness. He has been in his usual state of health, mowed his grass and came back into the home to get something to eat. According to the Dr. Bella's note, it indicated that he went to pick something up and suddenly felt dizzy, although when I interviewed him, he did not remember any sudden movement. The room spun continuously until kitchenhand arrived and gave him something that sedated him and he woke up in the Emergency Room somewhat better. He indicates that he had nausea, vomiting, instability, although not unilateral, diarrhea and diaphoresis after the vertigo had begun. There was no diplopia, change in vision, dysarthria, unilateral weakness, numbness, facial droop, or change in mentation. There was no accompanying headache. There were no ear symptoms such as pain, ringing, hearing loss or ear pressure. He has no prior history of the same. In the ER, he was given meclizine, famotidine, and Valium. CT of the head noncontrast was unremarkable. CTA of the head and neck showed no aneurysm, occlusion or significant stenosis. MRI of the brain is pending, although appears grossly normal. He has noted since feeling somewhat better that changes in position will briefly cause vertigo. He remains somewhat feeling unwell and is not losing balance unilaterally. He has not had any head or neck trauma, chiropractic manipulation of the neck, chest pain, palpitation, or shortness of breath. He has not recently been ill. None of his medicines are new or changed in dose. PAST MEDICAL HISTORY: As above. No history of stroke, RI, DVT, PE, or cancer. ALLERGIES: No allergies. PAST SURGICAL HISTORY: Colonoscopy, wisdom tooth removal, removal of right testicle secondary to torsion. HOME MEDICATIONS: Pravastatin. FAMILY HISTORY: Father diabetes. Mother diabetes, dementia. Brother hyperlipidemia. SOCIAL HISTORY: Remotely smoked, does not drink alcohol. 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 REVIEW OF SYSTEMS: As above. LABORATORY DATA: White count on admission 12.45, H and H 15.5 and 43, platelet count 222. Chemistry profile notable for a blood sugar of 164 and a lipase of 71. Electrocardiogram; sinus audie, LVH, nonspecific ST-T wave abnormalities. PHYSICAL EXAMINATION: VITAL SIGNS: On admission, pulse 61, respirations 16, 149/81, 103, 96%. GENERAL: The patient is awake and alert. There is normal speech and language. His affect is appropriate. VASCULAR: There are no carotid, vertebral or supraclavicular bruits. Radial pulses are palpably symmetric. HEART: Regular rate and rhythm. EXTREMITIES: No peripheral edema is noted. NEUROLOGIC: Pupils are equal, round and reactive to light. The optic nerves are unremarkable. There are normal peraza. Motility reveals mild horizontal nystagmus on right lateral gaze. Normal facial sensation. Gross hearing intact. Normal facial symmetry. No dysarthria. Tongue is midline. Motor 5/5, no drift. Normal rapid alternating movements. No tremor is noted. Symmetric reflexes. Downgoing toes. Vvzuzo-gm-ximd and kmxc-md-xnxp are normal. There is no dysdiadochokinesia. He is mildly unsteady in gait, but not unilaterally so. Tandem is unremarkable. Romberg is mildly positive. Provocative head maneuvers are negative. IMPRESSION: Suspect benign paroxysmal positional vertigo provided MRI brain normal versus vestibular neuronitis, favor benign paroxysmal positional vertigo due to the positional component. PLAN: Treat symptomatically with meclizine or Valium if needed. PT consultation for Leticia maneuver and vestibular therapy. We will follow with you.
[2018-11-25 06:27] LABS: Estimated Average Glucose 131 mg/dl; Hemoglobin A1C 6.2 % (4.5-5.6)
[2018-11-25] MEDS: SODIUM CHLORIDE 0.9% 1000ML 1,000 ML IV SCH (07:08)
[2018-11-25] MEDS: PRAVASTATIN SOD 40 MG TAB PO SCH (08:29)
[2018-11-25] MEDS ORDERED: AMLODIPINE BESYLATE 5 MG TAB PO ONE ×2 (09:45→15:45)
--- NOTE | 2018-11-25 15:59 | Hospitalist Progress Note ---
Date of Service November 25, 2018 Assessment & Plan (1) Dizziness: This is a 62-year-old male who presents with severe dizziness which was also associated with vomiting Dizziness and Vomiting secondary to benign positional vertigo -Head CTA: No evidence of aneurysm, focal vessel occlusion, or significant stenosis of the intracranial arteries -Neck CTA: No evidence of dissection, focal vessel occlusion, or significant stenosis of the cervical arteries -patient received IV fluids and antiemetics and meclizine -no acute telemetry events, heart rate and rhythm has been sinus and normal -echocardiogram: normal ejection fraction -Brain MRI 11/24/18: there are no foci of restricted diffusion to suggest acute infarct. No acute intracranial hemorrhage, midline shift or mass effect is present. Brain volume is normal. Ventricular system is normal. The basilar cisterns are patent. No intracranial mass or pathologic enhancement. Mild white matter T2 hyperintense foci suggest small vessel disease. There is no fluid within the mastoid air cells. No cerebellopontine angle mass is identified. Orb its are unremarkable. -So far the initial dizziness or vertigo for which he initially presented for appears to be resolved. Patient denies dizziness currently. He was able to move his head rapidly from side to side without acute issues. no headache. no vomiting today. no chest pain. no shortness of breath. we discussed currently imaging scan results which have been generally negative. patient is encouraged to walk as tolerated and will monitor blood pressure off IV fluids -Patient may take meclizine 12.5 mg three times a day as needed if dizziness -if any further symptoms of dizziness or vertigo, patient may call neurology clinic for appointment Address: [address], [place] [address] Hypertension -blood pressure systolic in the 150s to 160s while in the hospital -will monitor blood pressures off IV fluids -blood pressure systolic persistently from 150 to 160 off IV fluids -patient given amlodipine x 2 separate doses on 11/25/18. Discharge on amlodipine 10 mg daily. Patient should follow up with primary care doctor for further blood pressure management 11/28/2018 1:10 PM Provider DO Niru De La Fuente [facility] History of hyperlipidemia -Continue statin. Deep venous thrombosis prophylaxis while in the hospital: Sequential compression devices, encourage ambulation as tolerated Discharge Diagnosis Dizziness and Vomiting secondary to benign positional vertigo, Hypertension Subjective Patient's blood pressure has been consistently above 150. amlodipine given on 2 separate occasions on 11/25/18, patient does not have any dizziness or nausea symptoms today. no vomiting. no chest pain. no abdomen pain. no shortness of breath. discussed plans with patient for discharge and outpatient follow up Physical Exam Constitutional: WD/WN, vitals as above Eyes: PERRL, conjunctivae normal, anicteric sclerae EOM intact bilaterally ENMT: external ear and nose normal, oropharynx normal Neck: trachea midline, no thyromegaly normal visual inspection Respiratory: normal respiratory effort, lungs clear to auscultation Cardiovascular: RRR, no murmur, no edema Gastrointestinal (Abdomen): normal bowel sounds, soft, nontender, no hepatosplenomegaly Musculoskeletal: no cyanosis or clubbing, extremities motor strength 5/5 Head/Neck/Chest: normocephalic and head atraumatic Neurologic: PERRL, EOMI, accommodation nl, no face palsy, no dysarthria CN's II-XI intact bilaterally Psychiatric: A+Ox3, euthymic affect Results & Data Vital Signs (Past 12 Hours) Vital Signs Temp Pulse Pulse Resp BP BP Pulse Ox 11/25/18 15:32 36.8 C 64 160/89 H 96 11/25/18 11:19 36.7 C 63 19 169/92 H 95 11/25/18 07:16 36.6 C 59 L 19 162/85 H 95 11/25/18 04:00 36.6 C 63 16 161/80 H 96
--- NOTE | 2018-11-25 16:07 | Discharge Summary ---
Date of Service November 25, 2018 Admission HPI Per Admitting Provider CHIEF COMPLAINT: Severe dizziness. HISTORY OF PRESENT ILLNESS: This 62-year-old male with past medical history significant for hyperlipidemia, prediabetes, comes with severe dizziness. The patient says that he mowed his grass and then he came home and his asked to get him something and he went to pick the thing up, he suddenly felt severely dizzy, felt the whole room spinning and he called the EMS. When the EMS came in, he was having nausea, vomiting, diarrhea and diaphoretic and he had several episodes of vomiting. He was thinking that he might have some food poison that he said he ate some leftover pizza. The EMS gave some medication and then he did not know what happened, he just woke up in the ER. In the ER, he was given meclizine, famotidine and was having significant dizziness and so he was also given Valium. CT of the head was done, which was unremarkable. Since he was having ongoing symptoms and there was some horizontal nystagmus, CTA of the head and neck was done, which was unremarkable. ER tried to discharge the patient but whenever he is getting up from the bed, he is still feeling dizzy, room spinning, imbalance and nauseous, so we are called for admission. The patient is currently resting comfortably and hemodynamically stable, but he says when he turns his head, he sometimes is feeling room spinning and he says he just now got up to go for bathroom and he was feeling again dizziness and imbalance. It never happened before. Denies any upper respiratory infections. No fever, no chills, no headache. Currently has some blurred vision, no earache, no sore throat. Otherwise, no difficulty swallowing. Appetite is okay otherwise. Denies any chest pain currently, no shortness of breath, no abdominal pain. Normal bladder movements. No hematuria, no burning micturition. No swelling in the legs. No rash. ALLERGIES: No known drug allergies. PAST MEDICAL HISTORY: As mentioned above. PAST SURGICAL HISTORY: Colonoscopy, wisdom tooth removal, removal of right testis secondary to torsion. MEDICATIONS: Pravastatin 40 mg p.o. daily. FAMILY HISTORY: Significant for father has diabetes. Mother has diabetes and Alzheimer dementia. Brother has high cholesterol. SOCIAL HISTORY: and lives with his . Former smoker, quit smoking, smoked 0.25 pack a day for 32 years. Alcohol rarely. REVIEW OF SYMPTOMS: As per HPI. Rest of review of symptoms negative. Admission Exam Per Admitting Provider PHYSICAL EXAMINATION: GENERAL: The patient is of moderate build, not in acute distress. VITAL SIGNS: Temperature afebrile, pulse 59, respiratory rate 18, blood pressure 161/86, oxygen 95% on room air. HEENT: No pallor, no icterus. Pupils equal, round, reactive to light. Possible horizontal nystagmus mildly present. NECK: No neck masses. Supple. CARDIOVASCULAR: S1, S2 heard, regular rate and rhythm, no murmur, no gallop. RESPIRATORY SYSTEM: Normal AP diameter. No accessory muscle use. No wheezing, no crackles. ABDOMEN: Soft, bowel sounds present. Nontender. No distention. CENTRAL NERVOUS SYSTEM: Cranial nerves II-XII grossly intact. Coordination of movements normal. Jubzbr-ze-zion test normal. No pronator drift. EXTREMITIES: No edema, no erythema. Principal Diagnosis Dizziness and Vomiting secondary to benign positional vertigo, Hypertension Discharge Exam Constitutional WD/WN, vitals as above Eyes PERRL, conjunctivae normal, anicteric sclerae EOM intact bilaterally ENMT external ear and nose normal, oropharynx normal Neck trachea midline, no thyromegaly normal visual inspection Respiratory normal respiratory effort, lungs clear to auscultation Cardiovascular RRR, no murmur, no edema Gastrointestinal (Abdomen) normal bowel sounds, soft, nontender, no hepatosplenomegaly Musculoskeletal no cyanosis or clubbing, extremities motor strength 5/5 Head/Neck/Chest: normocephalic and head atraumatic Neurologic PERRL, EOMI, accommodation nl, no face palsy, no dysarthria CN's II-XI intact bilaterally Psychiatric A+Ox3, euthymic affect Discharge Data Allergies Allergy/AdvReac Type Severity Reaction Status Date / Time No Known Allergies Allergy Mild Unverified 05/12/06 20:38 Consultations 11/24/18 01:34 ED Decision to Admit Stat 11/24/18 08:00 Consult Neurology Routine Ordered Studies 11/23/18 18:19 CT head/brain wo con Stat 11/23/18 20:28 CT angio head w con Stat CT angio neck with con Stat 11/24/18 02:52 MR brain wo/w con Routine Hospital Course (1) Dizziness: This is a 62-year-old male who presents with severe dizziness which was also associated with vomiting Dizziness and Vomiting secondary to benign positional vertigo -Head CTA: No evidence of aneurysm, focal vessel occlusion, or significant stenosis of the intracranial arteries -Neck CTA: No evidence of dissection, focal vessel occlusion, or significant stenosis of the cervical arteries -patient received IV fluids and antiemetics and meclizine -no acute telemetry events, heart rate and rhythm has been sinus and normal -echocardiogram: normal ejection fraction -Brain MRI 11/24/18: there are no foci of restricted diffusion to suggest acute infarct. No acute intracranial hemorrhage, midline shift or mass effect is present. Brain volume is normal. Ventricular system is normal. The basilar cisterns are patent. No intracranial mass or pathologic enhancement. Mild white matter T2 hyperintense foci suggest small vessel disease. There is no fluid within the mastoid air cells. No cerebellopontine angle mass is identified. Orbits are unremarkable. -So far the initial dizziness or vertigo for which he initially presented for appears to be resolved. Patient denies dizziness currently. He was able to move his head rapidly from side to side without acute issues. no headache. no vomiting today. no chest pain. no shortness of breath. we discussed currently imaging scan results which have been generally negative. patient is encouraged to walk as tolerated and will monitor blood pressure off IV fluids -Patient may take meclizine 12.5 mg three times a day as needed if dizziness -if any further symptoms of dizziness or vertigo, patient may call neurology clinic for appointment Address: [facility] [address], [place] [address] Hypertension -blood pressure systolic in the 150s to 160s while in the hospital -will monitor blood pressures off IV fluids -blood pressure systolic persistently from 150 to 160 off IV fluids -patient given amlodipine x 2 separate doses on 11/25/18. Discharge on amlodipine 10 mg daily. Patient should follow up with primary care doctor for further blood pressure management 11/28/2018 1:10 PM Provider DO Niru De [facility] History of hyperlipidemia -Continue statin. Deep venous thrombosis prophylaxis while in the hospital: Sequential compression devices, encourage ambulation as tolerated Discharge Diagnosis Dizziness and Vomiting secondary to benign positional vertigo, Hypertension Total Time Total Time Spent Total Time Spent (In Minutes): 40 minutes Total Time Includes: Examination of the Patient, Discharge Planning, Medication Reconciliation and Communication With Other Providers Discharge Plan Discharge Items Patient Disposition: Home - Self-Care Reason For Visit: DIZZINESS Discharge Diagnosis: Dizziness and Vomiting secondary to benign positional vertigo, Hypertension Condition: Good Discharge Goals: Improve disease control Activity: Resume your previous activity Non-emergency contact: Primary Care Provider Call non-emergency contact if: you have any medication questions Follow-up/Referrals: PCP,NO [Primary Care Provider] - Diet: Heart Healthy Addtl Provider Instructions: Discharge on amlodipine 10 mg daily. Patient should follow up with primary care doctor for further blood pressure management 11/28/2018 1:10 PM Provider DO Niru De La [facility] Patient may take meclizine 12.5 mg three times a day as needed if dizziness if any further symptoms of dizziness or vertigo, patient may call neurology clinic for appointment Address: [address] [place] [address], [place] [address] Prescriptions: New ondansetron 4 mg tablet,disintegrating 4 mg PO Q8H PRN (Reason: nausea and vomiting) Qty: 14 RF: 0 meclizine 25 mg tablet 25 mg PO TID PRN (Reason: dizziness) Qty: 20 RF: 0 meclizine 12.5 mg Tablet 12.5 mg PO TID PRN (Reason: dizziness) 5 Days Qty: 15 RF: 0 amlodipine 5 mg tablet 10 mg PO DAILY 30 Days Qty: 60 RF: 0 Continued pravastatin 40 mg 40 mg PO DAILY RF: 0 Stand-Alone Forms: [facility] [facility]/Other Patient Handouts: Prediabetes, Diabetes Meal Planning Discharge Orders: Discharge Order (Routine); Ordered 11/25/18 Ordered By: Jarrod Bella Admission Data Admit Date/Time: 11/24/18 02:05 Attending Provider: Jarrod Bella Admit Provider: Davian Rojas Primary Care Provider: PCP,NO Other Providers: Davian Rojas ; Rabia Kaufman ; Yvon Mendez Kathleen ; Curry Barrow Service: Telemetry Medical
[2018-11-26] MEDS ORDERED: AMLODIPINE BESYLATE 5 MG TAB PO SCH ×2 (09:00)
== END 2018-11-25 15:35 | disposition home or self-care (01) ==
LOC: 2N 18:10 → ED 18:10 → 2N 11-24 02:29